=== PATIENT | male | born 1940 | race Caucasian/White ===

== ENCOUNTER 2019-01-29 14:40 | Emergency (ER) | payer BC, MEDICARE ==
--- NOTE | 2019-01-29 15:44 | EDM.PDOC ---
ED HPI GENERAL MEDICAL PROBLEM - General Chief Complaint: General Stated Complaint: NUMBNESS, NOT FEELING WELL Time Seen by Provider: 01/29/19 15:25 Source of Information: Reports: Patient History Limitations: Reports: Other (Patient told to come to the ER today by his provider's office. No records or phone referral made on behalf of his provider. ) - History of Present Illness INITIAL COMMENTS - FREE TEXT/NARRATIVE: 78 yo male presents to the ER today with several weeks of intermittent trouble with speech and dizziness with standing and "total body numbness". Speech slurring was apparently intermittent until 3-4 days ago and now constant. Had been seen in the clinic for this and had blood work. Patient states "every blood test was normal except for a slightly high hgb". No referral or follow up was arranged for the patient. When he called his clinic today he was told to " go to the ER". Lives with his who did not accompany him to the ER today. When Dr. Huitron's office was contacted they say he saw them for fatigue and was more worried about a tick borne illness. Dr. Huitron is not in the office this afternoon. Apparently the patient had mentioned some mild intermittent slurred speech, but this was not present at the time of the visit so no neurological work up was initiated. Does not smoke, has no known hx of afib, no known cholesterol, valvular problems , AODM, or HTN. A review of the labs from his [facility] [facility] visit 01/23/19 shows negative a tick panel, CMP, & CBC both mostly within normal limits. Onset: Gradual Duration: Day(s): (4 of constant fixed symptoms with regards to his speech. The other sx's wax and wane. ), Intermittent, Waxing/Waning Location: Reports: Generalized Quality: Reports: Other (no pain) Severity: Mild Improves with: Reports: Other (? resting, seems to feel that walking or standing makes his "numbness" worse. ) Worsens with: Reports: Other (? walking, exertion.) Context: Reports: Other (See HPI) Associated Symptoms: Reports: No Other Symptoms. Denies: Confusion, Chest Pain , Diaphoresis, Fever/Chills, Headaches, Nausea/Vomiting, Shortness of Breath Treatments COFOUNDER: Reports: Other (see below) (none) - Related Data Allergies Allergy/AdvReac Type Severity Reaction Status Date / Time adhesive Allergy Rash Verified 03/17/16 07:53 Home Meds: Home Meds Ranitidine HCl [Zantac] 300 mg PO DAILY 02/14/16 [History] Past Medical History Gastrointestinal History: Reports: Other (See Below) Other Gastrointestinal History: bleeding ulcer Genitourinary History: Reports: BPH Musculoskeletal History: Reports: Arthritis Hematologic History: Reports: Blood Transfusion(s) Other Hematologic History: 40 years ago because of a bleeding ulcer - Infectious Disease History Infectious Disease History: Reports: Measles, Mumps - Past Surgical History HEENT Surgical History: Reports: Tonsillectomy GI Surgical History: Reports: Hernia, Inguinal Social & Family History - Family History Family Medical History: Noncontributory - Tobacco Use Smoking Status *Q: Former Smoker Used Tobacco, but Quit: Yes Month/Year Tobacco Last Used: 4 years - Caffeine Use Caffeine Use: Reports: Coffee - Recreational Drug Use Recreational Drug Use: No ED ROS GENERAL - Review of Systems Review Of Systems: See Below Constitutional: Reports: No Symptoms HEENT: Reports: No Symptoms Respiratory: Reports: No Symptoms Cardiovascular: Reports: No Symptoms Endocrine: Reports: No Symptoms GI/Abdominal: Reports: No Symptoms : Reports: No Symptoms Musculoskeletal: Reports: No Symptoms Skin: Reports: No Symptoms Neurological: Reports: Numbness (total body intermittently) Psychiatric: Reports: No Symptoms ED EXAM, GENERAL - Physical Exam Exam: See Below Exam Limited By: No Limitations General Appearance: Alert, WD/WN, No Apparent Distress Eye Exam: Bilateral Eye: EOMI, Normal Inspection, PERRL Ears: Normal External Exam, Normal Canal, Hearing Grossly Normal, Normal TMs Ear Exam: Bilateral Ear: Auricle Normal, Canal Normal, TM normal Nose: Normal Inspection, Normal Mucosa, No Blood Throat/Mouth: Normal Inspection, Normal Lips, Normal Oropharynx, Normal Voice, No Airway Compromise Head: Atraumatic, Normocephalic Neck: Normal Inspection Respiratory/Chest: No Respiratory Distress, Lungs Clear, Normal Breath Sounds, No Accessory Muscle Use Cardiovascular: Regular Rate, Rhythm, No Edema GI/Abdominal: Normal Bowel Sounds, Soft, Non-Tender, No Distention Back Exam: Normal Inspection. No: CVA Tenderness (R), CVA Tenderness (L) Extremities: Normal Inspection, Normal Range of Motion, Non-Tender, No Pedal Edema Neurological: Alert, Oriented, CN II-XII Intact, Normal Cognition, Other ( speech mildly slurred). No: Confused Psychiatric: Normal Affect, Normal Mood Skin Exam: Warm, Dry, Intact, Normal Color Lymphatic: No Adenopathy Course - Vital Signs Text/Narrative:: Orthostats normal Last Recorded V/S: Last Vital Signs Temp 36.3 C 01/29/19 15:04 Pulse 62 01/29/19 15:23 Resp 14 01/29/19 15:23 BP 118/73 01/29/19 15:23 Pulse Ox 95 01/29/19 15:23 Orthostatic Blood Pressure [ 124/76 Standing] Orthostatic Blood Pressure [ 116/73 Sitting] Orthostatic Blood Pressure [ 122/74 Supine] - Orders/Labs/Meds Orders: Active Orders 24 hr Category Date Time Status Cardiac Monitoring [RC] .As Directed Care 01/29/19 15:45 Active Orthostatic Vital Signs [RC] ASDIRECTED Care 01/29/19 15:54 Active Labs: Laboratory Tests 01/29/19 01/29/19 01/29/19 Range/Units 15:55 16:12 16:12 WBC 6.4 (4.5-11.0) K/uL RBC 5.46 (4.30-5.90) M/uL Hgb 17.0 H (12.0-15.0) g/dL Hct 50.2 (40.0-54.0) % MCV 92 (80-98) fL MCH 31 (27-31) pg MCHC 34 (32-36) % Plt Count 162 (150-400) K/uL Sodium 136 L (140-148) mmol/L Potassium 4.6 (3.6-5.2) mmol/L Chloride 102 (100-108) mmol/L Carbon Dioxide 28 (21-32) mmol/L Anion Gap 10.6 (5.0-14.0) mmol/L BUN 25 H (7-18) mg/dL Creatinine 1.5 H (0.8-1.3) mg/dL Est Cr Clr Drug Dosing 44.62 mL/min Estimated GFR (MDRD) 46 L (>60) Glucose 112 H (74-106) mg/dL Calcium 9.2 (8.5-10.1) mg/dL Troponin I < 0.017 (0.000-0.056) ng/mL Meds: Medications Discontinued Medications Generic Name Dose Route Start Last Admin Trade Name Sarah PRN Reason Stop Dose Admin Aspirin 324 mg 01/29/19 15:45 01/29/19 16:10 Aspirin PO 01/29/19 15:46 324 mg ONETIME ONE Administration - Radiology Interpretation Free Text/Narrative:: head CT without contrast-neg CT Results Date: 01/29/19 Departure - Departure Time of Disposition: 17:30 Disposition: Home, Self-Care 01 Condition: Fair Clinical Impression: Neurological disorder - Discharge Information *PRESCRIPTION DRUG MONITORING PROGRAM REVIEWED*: No *COPY OF PRESCRIPTION DRUG MONITORING REPORT IN PATIENT GERRI: No Referrals: Howard Huitron MD [Primary Care Provider] - Forms: ED Department Discharge Additional Instructions: Take a baby aspirin daily. Follow up with a neurologist as soon as possible. Return if a lot worse. - My Orders Last 24 Hours: My Active Orders 01/29/19 15:45 Cardiac Monitoring [RC] .As Directed 01/29/19 15:54 Orthostatic Vital Signs [RC] ASDIRECTED - Assessment/Plan Last 24 Hours: My Active Orders 01/29/19 15:45 Cardiac Monitoring [RC] .As Directed 01/29/19 15:54 Orthostatic Vital Signs [RC] ASDIRECTED
[2019-01-29] MEDS ORDERED: Aspirin 81 MG Tab.Chew PO ONE (15:45)
[2019-01-29 15:53] VITALS: BP 118/73
--- NOTE | 2019-01-29 16:19 | CRLCT ---
INDICATION: Slurred speech, dizziness, numbness x-4 days TECHNIQUE: CT Head without i.v. contrast. COMPARISON: None FINDINGS: CSF space: Unremarkable for age. Brain: No evidence of mass, acute infarction or hemorrhage is seen. No mass-effect or midline shift is seen. Mild diffuse cortical atrophy is noted. The brain parenchyma is otherwise normal in appearance with preservation of the flores-white matter junction. Calvarium: The visualized paranasal sinuses are well aerated. The mastoid air cells are clear. The visualized orbits are grossly unremarkable. The calvarium is unremarkable in appearance with no fractures identified. IMPRESSION: 1. No evidence of acute infarction, intracranial hemorrhage, or mass-effect seen. Please note that all CT scans at this facility use dose modulation, iterative reconstruction, and/or weight-based dosing when appropriate to reduce radiation dose to as low as reasonably achievable. Dictated by: Ephraim Henry MD @ 01/29/2019 16:18:32 (Electronically Signed)
== END 2019-01-29 17:52 | disposition home or self-care (01) ==
LOC: JP.ED 14:40
DX: R29.90 Unspecified symptoms and signs involving the nervous system (principal); Z87.891 Personal history of nicotine dependence; Z91.048 Other nonmedicinal substance allergy status
CPT/HCPCS: 36415; 70450; 80048; 84484; 85027; 99284-25; A9270-GY

== ENCOUNTER 2022-02-05 12:26 | Emergency (ER) | payer MEDICARE ==
[2022-02-05 14:40] VITALS: BP 131/77
[2022-02-05] MEDS ORDERED: Benztropine 1 MG Tab PO ONE ×2 (15:07→16:28)
[2022-02-05 15:59] VITALS: PULSE 75
== END 2022-02-05 16:58 | disposition home or self-care (01) ==
LOC: JP.ED 12:26
DX: G24.9 Dystonia, unspecified (principal); Z88.8 Allergy status to other drugs, medicaments and biological substances
CPT/HCPCS: 99282; 99283; A9270

== ENCOUNTER 2022-04-09 23:01 | Emergency (ER) | payer MEDICARE ==
[2022-04-10 00:32] LABS: ESTIMATED GFR 56 mL/min (>60)
[2022-04-10] MEDS ORDERED: fentaNYL 50 MCG/ML SDV IVPUSH ONE (00:53)
[2022-04-10 01:18] VITALS: BP 114/67; PULSE 77
== END 2022-04-10 01:18 | disposition other institution (70) ==
LOC: JP.ED 23:01
DX: G23.1 Progressive supranuclear ophthalmoplegia [Steele-Richardson-Olszewski] (principal); K21.9 Gastro-esophageal reflux disease without esophagitis; Z87.891 Personal history of nicotine dependence; Z91.048 Other nonmedicinal substance allergy status; Z79.82 Long term (current) use of aspirin; Z79.899 Other long term (current) drug therapy
CPT/HCPCS: 36415; 70450; 80053; 82550; 85025; 96374; 99285; J3010

== ENCOUNTER 2022-06-29 09:12 | Emergency (ER) | payer MEDICARE ==
[2022-06-29 09:36] VITALS: BP 138/86; PULSE 74
[2022-06-29] MEDS ORDERED: Potassium Chloride 20 MEQ Tab.ER PO ONE (10:56)
[2022-06-29] MEDS ORDERED: Calcium Carbonate 500 MG Tab.Chew PO ONE (11:14)
[2022-06-29] MEDS ORDERED: Acetaminophen 500 MG Tab PO ONE (12:19)
[2022-06-29] MEDS ORDERED: Nitrofurantoin Monohydrate/Macrocrystalline 100 MG Cap PO SCH (12:30)
== END 2022-06-29 13:05 | disposition home or self-care (01) ==
LOC: JP.ED 09:12
DX: S22.31XA Fracture of one rib, right side, initial encounter for closed fracture (principal); E86.0 Dehydration; N30.00 Acute cystitis without hematuria; G20 Parkinson's disease; E87.6 Hypokalemia; E83.51 Hypocalcemia; G24.9 Dystonia, unspecified; K21.9 Gastro-esophageal reflux disease without esophagitis; N40.0 Benign prostatic hyperplasia without lower urinary tract symptoms; M19.90 Unspecified osteoarthritis, unspecified site; Z91.040 Latex allergy status; Z91.048 Other nonmedicinal substance allergy status; Z79.899 Other long term (current) drug therapy; W18.30XA Fall on same level, unspecified, initial encounter
CPT/HCPCS: 36415; 71045; 80048; 81001; 82040; 84145; 85025; 87086; 87088; 87186; 99284; A9270

== ENCOUNTER 2022-07-10 09:59 | Emergency (ER) | payer MEDICARE ==
[2022-07-10 10:03] VITALS: BP 117/77; PULSE 78
== END 2022-07-10 14:02 ==
LOC: JP.ED 09:59
DX: G20 Parkinson's disease (principal); S22.31XS Fracture of one rib, right side, sequela; Z91.048 Other nonmedicinal substance allergy status; Z91.040 Latex allergy status; Z79.899 Other long term (current) drug therapy; W19.XXXA Unspecified fall, initial encounter
CPT/HCPCS: 99284